=== PATIENT | female | born 1970 | race Hispanic/Latino ===

== ENCOUNTER → 2025-07-07 | Outpatient (CLI) | payer BC ==
--- NOTE | 2025-07-10 13:19 | HMCIMG ---
DIGITAL BILATERAL SCREENING MAMMOGRAM Technique: The digital mammographic examination of both breasts in craniocaudal and mediolateral oblique views along with CAD was obtained. History: This is a 54 years year-old female 2, para2 Ab0. Patient has no family history of breast cancer. Patient has no complaint Reference:Prior mammogram from 04/24/2024, 04/23/2023, and 10/23/2021 are available for comparison.. Breast composition: Breast composition C: The breasts are heterogeneously dense, which may obscure small masses. Finding: The digital mammographic examination of both breasts in craniocaudal and mediolateral oblique view along with CAD demonstrates both breasts to be moderately heterogeneously nodular dense breasts.. There is no evidence of any dendritic mass, cluster microcalcification or architectural distortion. The retromammary fat appears to be normal. IMPRESSION: To be moderately heterogeneously nodular dense breasts. I would recommend a baseline bilateral breast sonogram.. FINAL ASSESSMENT: ACR: BI-RAD -0. Incomplete: need additional imaging evaluation. Management: Recall for additional imaging and/or comparison with prior examination(s). Likelihood of Cancer: N/A NOTE: IF A WORK-UP OF THIS PATIENT LEADS TO A BIOPSY, PLEASE FORWARD A COPY OF THE PATHOLOGY REPORT TO OUR OFFICE REQUIRED BY [facility] EFFECTIVE JULY 04, 1994. A NEGATIVE MAMMOGRAM SHOULD NOT PRECLUDE BIOPSY OF A CLINICALLY PALPABLE SUSPICIOUS MASS, 10% OF BREAST CANCERS ARE MAMMOGRAPHICALLY OCCULT. THIS MAMMOGRAPHY FACILITY IS FULLY ACCREDITED BY THE [employer] AND [employer] (FDA). THANK YOU FOR THIS REFERRAL.
== END | disposition home or self-care (01) ==
LOC: RAH 10:37
PROVIDERS: ATTEND Family Medicine
DX: Z12.31 Encounter for screening mammogram for malignant neoplasm of breast (principal)
CPT/HCPCS: 77067

== ENCOUNTER → 2025-08-28 | Outpatient (CLI) | payer BC, OTHER ==
--- NOTE | 2025-08-29 00:25 | HMCIMG ---
EXAM: US Abdomen, Right Upper Quadrant CLINICAL HISTORY: Calculus of gallbladder without cholecystitis and without obstruction TECHNIQUE: Right upper quadrant sonography performed with image documentation. COMPARISON: None provided. FINDINGS: LIVER: Measures 14 cm. Normal echogenicity. No focal lesion. GALLBLADDER: Wall measures 2 mm. Multiple mobile gallstones present. No pericholecystic fluid. No sonographic evidence of acute cholecystitis. COMMON BILE DUCT: Measures 6 mm. Within normal limits for age. No intraductal calculus visualized. PANCREAS: Visualized portions appear within normal limits. RIGHT KIDNEY: Measures 10 ??? 4.5 ??? 4.6 cm. Normal cortical echogenicity. No calculus, mass, or hydronephrosis. IMPRESSION: * Cholelithiasis with mobile gallstones. No sonographic evidence of acute cholecystitis. * CBD 6 mm, within acceptable range. /Kj
--- NOTE | 2025-08-29 11:47 | HMCIMG ---
BILATERAL BREAST ULTRASOUND: CLINICAL HISTORY: Follow-up for mammogram from 07/07/2025 for dense breasts Finding: Real-time examination of the both breasts demonstrates homogeneous echotexture throughout both the breasts without evidence of focal solid or cystic masses. There is benign-appearing bilateral axillary lymph node on the largest on the right measures 2.1 x 0.8 x 0.8 cm. The largest in the left measuring 1.1 x 0.7 cm. IMPRESSION: Dense breasts with no solid or cystic masses seen. I would recommend annual mammography with tomography with bilateral breast sonogram. FINAL ASSESSMENT: ACR: BI-RAD- 2. Benign Finding.
== END | disposition home or self-care (01) ==
LOC: RAH 07:35
PROVIDERS: ATTEND Family Medicine
DX: K80.20 Calculus of gallbladder without cholecystitis without obstruction (principal); R92.333 Mammographic heterogeneous density, bilateral breasts
CPT/HCPCS: 76705